=== PATIENT | male | born 1935 | race Caucasian/White ===

== ENCOUNTER 2016-07-22 16:31 | Observation (INO) | payer MEDICARE, BC ==
--- NOTE | 2016-07-22 16:50 | EDPRACDOC ---
- General Information Chief Complaint: Wound Stated Complaint: TRIPPED INJURED RT ARM TAKES A ASA BLEEDING Time Seen by Provider: 07/22/16 16:45 Mode of Arrival: Car Home Medications: Home Medications Beta-Carotene(A) W-C & E/Min [Ocuvite Tablet (1000IU/200mg/60IU)] 1 tab PO DAILY 09/01/14 Psyllium [Metamucil] 1 lamont PO DAILY 09/01/14 Ibuprofen [Motrin Ib] 200 mg PO .PRN PRN 07/22/16 Loratadine [Claritin] 10 mg PO DAILY 07/22/16 Allergies/Adverse Reactions: Allergies Allergy/AdvReac Type Severity Reaction Status Date / Time naproxen sodium [From Aleve] Allergy Intermediate Nausea only Verified 07/22/16 16:40 Sulfa (Sulfonamide Allergy Intermediate RASH Verified 07/22/16 16:40 Antibiotics) [Sulfa(Sulfonamide Antibiotics)] - 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 STRUCK RIGHT WRIST WHEN FALLING. LARGE VOLAR LACERATION 10 CM. PAIN IN RIGHT WRIST AND ELBOW. NO HEAD INJURY. NO LOC Location: Reports: Volar Dominant Side: Reports: Right Mechanism: Reports: FOOSH Pain Severity: Reports: Mild Associated Signs and Symptoms: Reports: Laceration ED Past Medical History - History Reviewed Yes Nurses notes reviewed and agree except as marked Travel Outside of [place] in the Last 3 Months?: No - Patient Medical History Musculoskeletal History: Reports: Arthritis Surgical History: Reports: Tonsillectomy/Adnoidectomy, Other (LEFT HIP REPLACEMENT, UPPER BACK SURGERY) - Family Medical History Reports: Cancer (FATHER PROSTATE CA). Denies: Hypertension, Diabetes, Stroke, Cardiac Disorders - Social Medical History Smoking Status: Never smoker ETOH: None Substance Abuse: None Lives With: Family Lives In: Home EDM Review of Systems - Review of Systems ROS Negative Except as Marked: Yes All systems reviewed and were negative except as marked Constitutional: No Symptoms Reported. negative: Fever, Chills, Weakness, Fatigue, Loss of Appetite Eyes: No Symptoms Reported. negative: Redness, Blurred Vision, Double Vision, Discharge, Pain, Light Sensitive, Photophobia Ears: No Symptoms Reported. negative: Pain, Hearing Loss, Drainage, Ear Pulling Throat: No Symptoms Reported. negative: Pain, Swelling Nose: No Symptoms Reported. negative: Congestion, Bleeding, Discharge, Injection, Swelling, Deformity, Ecchymosis, Tender, Abrasion, Laceration Mouth: No Symptoms Reported. negative: Pain, Drooling Respiratory: No Symptoms Reported. negative: Cough, Brassy Cough, Barky Cough, Shortness of Breath, Wheezing, Hemoptysis Cardiovascular: No Symptoms Reported. negative: Chest Pain, Palpitations, Syncope, Edema, Orthopnea, PND, Skin Mottling, Cyanosis Gastrointestinal: No Symptoms Reported. negative: Pain, Constipation, Nausea, Vomiting, Diarrhea, Melena, Formula Intolerance Genitourinary: No Symptoms Reported. negative: Dysuria, Hematuria, Frequency, Discharge, Bleeding, Testicular Pain, Neurological: No Symptoms Reported. negative: Headache, Dizziness, Seizure, Numbness, Weakness, Speech Difficulty, Gait Difficulty Musculoskeletal: Elbow, Wrist. negative: Arm, Ankle, Back, Chestwall, Forearm, Femur, Foot, Hand, Hip, Knee, Leg, Neck, Pelvis, Ribs, Shoulder Integumentary: No Symptoms Reported. negative: Itching, Rash, Bruising, Wound Allergic/Immunologic: No Symptoms Reported. negative: Hives, Itching Hematologic: No Symptoms Reported. negative: Lymphadenopathy, Easy Bruising, Easy Bleeding Endocrine: No Symptoms Reported. negative: Weight Gain, Weight Loss Psychiatric: No Symptoms Reported. negative: Anxiety, Depression, Hallucinations, Insomnia, Suicidal - Physical Exam Constitutional: Alert (Awake) Oriented to: Time, Person, Place Last recorded Vital Signs: Last Vital Signs Temp 97.6 F 07/22/16 16:39 Pulse 83 07/22/16 16:39 Resp 20 07/22/16 16:39 BP 170/77 07/22/16 16:39 Pulse Ox 96 07/22/16 16:39 Oxygen Pulse Oxygen Saturation 96 O2 Device Room Air Oxygen Flow Rate Fraction of Inspired Oxygen ( FIO2) - HEENT Head: Normal ( normocephalic) Eye Exam: Normal (PERRL, EOMI, Sclera white) Oropharynx: Normal (Pharynx:Moist without exudate,Gums-no swelling) Tympanic Membrane: Normal ENT EAC: Normal TMJ: Normal Nose: No Symptoms Reported (septum midline) Neck: Normal (FROM, trachea at midline) - Respiratory/Cardiovascular Respiratory: Normal - CTA (BBS clear to auscultation without adventitious sounds ) Cardiovascular: Normal (RRR without murmur, gallop or rub) - GI Auscultation: Normal (NABS) Palpation: Normal (Soft,No rebound or guarding, non distended) Tenderness: Non tender Swift's Sign: Negative - Bladder: Normal - Musculoskeletal Back: Normal (Non-Tender) Extremities: Other (OPEN 10 CM WOUND RIGHT VOLAR SURFACE, TENDERNESS ON PALPATION OF WRIST AND FOREARM.) - Integumentary Skin: Warm, Dry Lymphatics: Normal (no adenopathy) - Neurologic Memory Impaired: Normal Motor Function: Normal (Normal tone, Pulses 2+ No cyanosis or edema, FROM) Cranial Nerve: Normal (CN II-X11 intact sensation, strength 5/5) Cerebellar: Normal Mood Description: Normal Perception: Normal ED Procedures - Suture/Laceration Suture #1 Right Volar Wrist Wound Length (cm): 10 Wound's Depth, Shape: into muscle, irregular, contused tissue Wound Explored: clean Irrigated w/ Saline (ccs): 2000 Betadine Prep?: Yes Anesthesia: Lidocaine w/ Epi Volume Anesthetic (ccs): 5 Wound Debrided: minimal Wound Margins: Revised Wound Repaired With: Sutures Suture Size/Type: 4:0, nylon Number of Sutures: 9 (matress sutures) Layer Closure?: Yes Deep Layer Suture Size/Type: 4:0 Number Deep Layer Sutures: 5 Sterile Dressing Applied?: Yes Splint Applied?: Yes Type of Splint Applied: volar short arm Sling Applied?: Yes ED Wrist Problem MDM - Re-evaluation Re-evaluation 1 Re-evaluation Time: 19:27 (patient was given dilaudid 0.5 mg had an event with doug cardia and decreased loc. b/p fell to 60 systolic. given 1 liter 0.9 ns given. patient now returning to baseline) - Results Result Diagrams: 07/22/16 17:35 07/22/16 17:35 - EKG EKG #1 EKG Time: 20:04 -: Yes EKG interpreted by me Rate: bpm: 64 [place]: Normal Rhythm: NSR Block: None Hypertrophy: None ST: Normal - Departure Yes I personally saw and evaluated the patient. Disposition: Home Condition: Stable Final Diagnosis: distal radius fracture indeterminant age, complex wound repair Dr. Horta Arm laceration Qualifiers: Encounter type: initial encounter Laterality: right Qualified Code(s): S41.111A - Laceration without foreign body of right upper arm, initial encounter Chest wall contusion Qualifiers: Encounter type: initial encounter Laterality: right Qualified Code(s): S20.211A - Contusion of right front wall of thorax, initial encounter Syncope Qualifiers: Syncope type: unspecified Qualified Code(s): R55 - Syncope and collapse Education/Counseling Given To: Patient Education/Counseling Given Regarding: Diagnosis, Treatment, Prognosis Referrals: Mikal Goodman MD [Primary Care Provider] - One Week Prescriptions: No Action Beta-Carotene(A) W-C & E/Min [Ocuvite Tablet (1000IU/200mg/60IU)] 1 tab PO DAILY Psyllium [Metamucil] 1 lamont PO DAILY Loratadine [Claritin] 10 mg PO DAILY Ibuprofen [Motrin Ib] 200 mg PO .PRN PRN PRN Reason: Pain - Physician Consulted Orthopedics Time Called: 17:20 Provider Called: Clint Heard (MICK BELLE SEE) Time Housing Grant Analyst Returned Call: 17:20 Surgery Time Called: 18:13 Provider Called: Paulo Belle (declined to come in because he does "not have the help") Time Housing Grant Analyst Returned Call: 18:13 Hospitalist Time Called: 20:39 Provider Called: Jozef Saab Time Housing Grant Analyst Returned Call: 20:39
[2016-07-22] MEDS ORDERED: DIPHTHERIA AND TETANUS (ADULT) 0.5 ML SYR IM ONE (17:24)
--- NOTE | 2016-07-22 17:33 | DIRPT ---
CLINICAL DATA: 80-year-old who tripped over a rug while entering a building holding a motor in his hand, falling onto the right wrist. Laceration to the right wrist. Associated elbow pain. Patient fell onto the motor and sustained bruising on the chest. Initial encounter. EXAM: RIGHT ELBOW - COMPLETE 3+ VIEW COMPARISON: No prior elbow imaging. Right humerus x-rays 08/10/2014 are correlated. FINDINGS: No evidence of acute fracture or dislocation. Mild osseous demineralization. Minimal to mild joint space narrowing. Small calcified loose bodies within the joint. No posterior fat pad to confirm joint effusion or hemarthrosis. IMPRESSION: No acute osseous abnormality. 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 Small intra-articular loose bodies. Electronically Signed By: Vivek Cox M.D. On: 07/22/2016 17:31
--- NOTE | 2016-07-22 17:38 | DIRPT ---
CLINICAL DATA: Fall onto right wrist. The patient fell on an object at the level of the mid chest and has bruising. EXAM: CHEST 2 VIEW COMPARISON: 02/06/2012 FINDINGS: We partially visualize fixation screws in the right proximal humerus. Linear subsegmental atelectasis or scarring along the left hemidiaphragm. Thoracic spondylosis. Cardiac and mediastinal margins appear normal. No pulmonary contusion, pneumothorax, or pleural effusion identified. No obvious discontinuity along the visualized part of the sternum, although the manubrium is obscured on the lateral projection. IMPRESSION: 1. Subsegmental atelectasis or scarring along the left hemidiaphragm. 2. Thoracic spondylosis. 3. Otherwise, no significant abnormalities are observed. Electronically Signed By: Carlos Enrique Craft M.D. On: 07/22/2016 17:36
--- NOTE | 2016-07-22 17:38 | DIRPT ---
ADDENDUM REPORT: 07/22/2016 18:15 ADDENDUM: As mentioned in the body of the report, the fracture involves the radial styloid not the ulnar styloid. The impression section should read as follows : "Radial styloid fracture with degenerative changes in the carpus." Electronically Signed By: Domingo Casey M.D. On: 07/22/2016 18:15 CLINICAL DATA: Fall. Tripped over rub walking into a building. Fell onto right wrist. Laceration. EXAM: RIGHT WRIST - COMPLETE 3+ VIEW COMPARISON: None. FINDINGS: Four views study shows a fracture involving the radial styloid. Degenerative changes are seen in the ulnar carpus and to a mild degree at the first carpometacarpal joint. Bandage material overlies the lateral wrist. IMPRESSION: Ulnar styloid fracture with degenerative changes in the carpus. Electronically Signed: By: Domingo Casey M.D. On: 07/22/2016 17:35
[2016-07-22 17:51] LABS: AUTOMATED BASOPHIL 1.1 % (0-2); AUTOMATED EOSINOPHIL 3.6 % (0-5); AUTOMATED LYMPH 20.5 % (17-44); AUTOMATED MONOCYTE 8.5 % (3-10); AUTOMATED NEUTROPHIL 66.3 % (45-76); MPV 8.8 fL (7.4-10.4)
[2016-07-22 18:03] LABS: PARTIAL THROMB. TIME 24.7 SEC (22-35)
[2016-07-22] MEDS ORDERED: OXYCODONE HCL 5 MG TABLET PO ONE (18:05)
[2016-07-22] MEDS ORDERED: Lidocaine 2%-Epinephrine 1:100,000 20ml vial INF ONE (18:08)
[2016-07-22] MEDS ORDERED: HYDROmorphone 1 MG INJECTION ONE (18:32)
[2016-07-22] MEDS ORDERED: ONDANSETRON HCL 4 MG/2 ML VIAL ONE (18:47)
[2016-07-22] MEDS ORDERED: CEFAZOLIN 1 GM in D5W 100 ML IV ONE (19:21)
[2016-07-22 20:14] LABS: BLOOD UREA NITROGEN 17 MG/DL (9-20); CALCIUM 8.9 MG/DL (8.4-10.2); CALCULATED OSMOLALITY 272 MOs/Kg (270-290); CHLORIDE 104 mEq/L (98-107); GLUCOSE 168 MG/DL (70-99); SODIUM LEVEL 138 mEq/L (137-146); TOTAL PROTEIN 6.6 G/DL (6.3-8.2)
[2016-07-22 20:16] LABS: CPK TOTAL WITH POSSIBLE MB 104 IU/L (55-170)
[2016-07-22] MEDS ORDERED: TRAMADOL HCL 50 MG TAB PO PRN (21:05)
[2016-07-22] MEDS ORDERED: OXYCODONE HCL 5 MG TABLET PO PRN (21:05)
--- NOTE | 2016-07-22 21:26 | HISTPHYS ---
- Chief Complaint injury to wrist - History of Present Illness PRIMARY CARE PROVIDER: Dr. Goodman HPI: The patient is a relatively healthy and active 80 yo man who presented to the emergency department after an injury today. The patient was carrying a motor and he tripped. The motor landed on his right wrist and hand and he landed on top of the motor. He sustained a laceration to his right hand near the base of the thumb. He also hit the motor with his chest in the substernal region. Patient was evaluated in the emergency department and he had suturing of his right hand laceration by the emergency department physician. X-rays revealed possible fracture of the right wrist, and the emergency department consult to Dr. Heard, who reviewed the x-rays personally and stated he did not feel that this was a fracture. In the emergency department, the patient's right hand wrist and forearm were wrapped. The patient did have some pain, so he was given some IV pain medication. Later in the visit, the patient developed sudden complete syncope/loss of consciousness, and his blood pressure decreased dramatically to a systolic of 60. He was given IV fluids for his blood pressure. He did regain consciousness bud was feeling somewhat weak and did not remember the event. The patient is being brought in for observation for his hypotension and syncope. Onset: The injury to his hand and wrist started earlier today. Syncope was x1 in the emergency department. Duration: intermittent. Location: Injury and pain are in the right hand and right wrist and also the entire sternal area of his chest. Radiation: none. Character: Syncope was generalized loss of consciousness. Pain is moderate and sharp. Alleviated by: Nothing. Exacerbated by: Nothing. Associated Symptoms: Pain in right hand and wrist. No decrease in range of motion; no weakness or numbness on right. Chest wall pain in sternal area. No palpitations. Syncope, loss of consciousness. Weakness and fatigue. Treatments: none at home except usual medications. - Medical History Musculoskeletal History: Reports: Arthritis (and fracture R humerus) OTHER HISTORY: Allergic rhinitis Constipation Bilateral shoulder pain Macular degeneration - Surgical History Reports: Tonsillectomy/Adnoidectomy, Other (LEFT HIP REPLACEMENT, UPPER BACK SURGERY, R humerus fx, Vasectomy) - Medictions/Allergies Allergies naproxen sodium [From Aleve] Allergy (Intermediate, Verified 07/22/16 16:40) Nausea only Sulfa (Sulfonamide Antibiotics) [Sulfa(Sulfonamide Antibiotics)] Allergy ( Intermediate, Verified 07/22/16 16:40) RASH Current Medication List: Reviewed Home Medications Beta-Carotene(A) W-C & E/Min [Ocuvite Tablet (1000IU/200mg/60IU)] 1 tab PO DAILY 09/01/14 Psyllium [Metamucil] 1 lamont PO DAILY 09/01/14 Ibuprofen [Motrin Ib] 200 mg PO .PRN PRN 07/22/16 Loratadine [Claritin] 10 mg PO DAILY 07/22/16 - Family History Reports: Cancer (FATHER PROSTATE CA) - Social History Smoking Status: Never smoker Social History: Denies: Alcohol Use, Substance Use Disorder - Review of Systems GENERAL: No Fever, chills, or diaphoresis. Positive for fatigue/malaise. HEENT: No throat pain or swelling. No eye pain or eye redness. RESPIRATORY: No cough, wheezing, or shortness of breath. CARDIOVASCULAR: Chest wall pain after fall. No palpitations. GI: No abdominal pain, nausea, vomiting, diarrhea, constipation, or bloody stool. NEUROLOGICAL: No headache or focal weakness. INTEGUMENT: Except for the laceration per HPI, no rashes, itching, or lesions. LYMPHATIC SYSTEM: no lymph node swelling or pain. MUSCULOSKELETAL: Except for the right hand and wrist, and sternal chest, no new pain or joint swelling. GENITOURINARY: No dysuria or hematuria. ENDOCRINE: No polyuria or polydipsia. HEME: No chronic anemia, bleeding, or easy bruising. - Physical Exam Vital Signs: Initial Vitals Temperature 97.6 F 07/22/16 16:39 Pulse Rate 83 07/22/16 16:39 Respiratory Rate 20 07/22/16 16:39 Blood Pressure 170/77 07/22/16 16:39 Pulse Oxygen Saturation 96 07/22/16 16:39 Vital Signs - 24 hr 07/22/16 07/22/16 07/22/16 16:39 16:40 18:50 Temperature 97.6 F Pulse Rate 83 79 50 L Respiratory 20 18 16 Rate Blood Pressure 170/77 179/79 69/47 L Pulse Oxygen 96 97 90 L Saturation 07/22/16 07/22/16 07/22/16 19:00 19:15 19:46 Temperature Pulse Rate 48 L 62 62 Respiratory 18 18 20 Rate Blood Pressure 123/62 130/62 131/63 Pulse Oxygen 94 94 94 Saturation 07/22/16 07/22/16 07/22/16 20:04 20:05 20:06 Temperature Pulse Rate 62 75 81 Respiratory Rate Blood Pressure 136/66 141/66 146/63 Pulse Oxygen Saturation Weight: 100 kg Height: 6 feet 3 inches BMI: 27.6 - Other Exam Other Exam Findings: GENERAL: Mildly ill-appearing, well nourished, acute distress. HEENT: Normocephalic, atraumatic; pupils equal and round. Nares patent, without discharge or bleeding. No oropharyngeal lesions or erythema. Mucous membranes are dry. NECK: is supple, no masses, trachea midline. RESPIRATORY: Clear to auscultation bilaterally. Chest wall movements are symmetric. No use of accessory muscles to breathe. No wheezing, rales, rhonchi. Mild tenderness to palpation over sternum. CARDIOVASCULAR: Normal S1, S2. Regular. Murmur 2/6 systolic. No rubs, or gallops. PMI non-displaced. Carotids: no carotid bruits. No bradycardia or tachycardia. DP pulses 2+ bilaterally. GI: soft, nontender, non-distended, normal active bowel sounds. No hepatosplenomegaly. INTEGUMENT: Clean, dry, and intact. Unable to visualize right hand with suturing due to bandaging and splint. MUSCULOSKELETAL: Moving all extremities. No cyanosis. No clubbing. Edema: none bilaterally. Right upper extremity: able to move arm. Able to move fingers without difficulty. No numbness. Unable to test wrist due to splint and bandaging. NEUROLOGICAL: Cranial nerves 2-12 grossly intact. Motor 5/5 throughout except unable to test right upper extremity due to bandaging in splint. Reflexes: 2+ bilaterally. Babinski: toes downgoing bilaterally. Intact Finger to nose on left , unable on right. Sensory grossly intact to light touch. Intact rapid alternating movements on left, unable on right. No pronator drift on left, unable to test on right. PSYCHIATRIC: Fully oriented. Normal and appropriate affect. LYMPHATIC: No cervical lymphadenopathy. No supraclavicular lymphadenopathy. - Lab Results Laboratory Results - last 24 hr 07/22/16 07/22/16 07/22/16 17:35 17:35 17:35 WBC 7.4 RBC 5.24 Hgb 14.6 Hct 44.3 MCV 85 MCH 27.9 MCHC 33.1 RDW 17.7 H Plt Count 196 MPV 8.8 Neut % (Auto) 66.3 Lymph % (Auto) 20.5 [place] % (Auto) 8.5 Eos % (Auto) 3.6 Baso % (Auto) 1.1 Absolute Neuts (auto) 4.88 Absolute Lymphs (auto) 1.48 PT 10.4 INR 1.0 APTT 24.7 Sodium 138 Potassium 3.9 Chloride 104 Carbon Dioxide 26 Anion Gap 12 BUN 17 Creatinine 1.00 Estimated GFR (MDRD) > 60 Glucose 168 H Calculated Osmolality 272 Calcium 8.9 Total Bilirubin 0.4 AST 32 ALT 39 Alkaline Phosphatase 83 Creatine Kinase Troponin I Total Protein 6.6 Albumin 4.0 07/22/16 17:35 WBC RBC Hgb Hct MCV MCH MCHC RDW Plt Count MPV Neut % (Auto) Lymph % (Auto) [place] % (Auto) Eos % (Auto) Baso % (Auto) Absolute Neuts (auto) Absolute Lymphs (auto) PT INR APTT Sodium Potassium Chloride Carbon Dioxide Anion Gap BUN Creatinine Estimated GFR (MDRD) Glucose Calculated Osmolality Calcium Total Bilirubin AST ALT Alkaline Phosphatase Creatine Kinase 104 Troponin I < 0.01 Total Protein Albumin - Diagnostic Findings EK beats per minute. Normal sinus rhythm. Reviewed EKG personally. Chest x-ray, viewed personally: Exam(s): [id number] RAD/DG CHEST 2V CLINICAL DATA: Fall onto right wrist. The patient fell on an object at the level of the mid chest and has bruising. EXAM: CHEST 2 VIEW COMPARISON: 02/06/2012 FINDINGS: We partially visualize fixation screws in the right proximal humerus. Linear subsegmental atelectasis or scarring along the left hemidiaphragm. Thoracic spondylosis. Cardiac and mediastinal margins appear normal. No pulmonary contusion, pneumothorax, or pleural effusion identified. No obvious discontinuity along the visualized part of the sternum, although the manubrium is obscured on the lateral projection. IMPRESSION: 1. Subsegmental atelectasis or scarring along the left hemidiaphragm. 2. Thoracic spondylosis. 3. Otherwise, no significant abnormalities are observed. Right Elbow x-ray: Exam(s): [id number] RAD/DG ELBOW COMPLETE 3+V-R CLINICAL DATA: 80-year-old who tripped over a rug while entering a building holding a motor in his hand, falling onto the right wrist. Laceration to the right wrist. Associated elbow pain. Patient fell onto the motor and sustained bruising on the chest. Initial encounter. EXAM: RIGHT ELBOW - COMPLETE 3+ VIEW COMPARISON: No prior elbow imaging. Right humerus x-rays 08/10/2014 are correlated. FINDINGS: No evidence of acute fracture or dislocation. Mild osseous demineralization. Minimal to mild joint space narrowing. Small calcified loose bodies within the joint. No posterior fat pad to confirm joint effusion or hemarthrosis. IMPRESSION: No acute osseous abnormality. 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 Small intra-articular loose bodies. Right wrist x-ray: Exam(s): [id number] RAD/DG WRIST COMPLETE 3+V-R ADDENDUM REPORT: 07/22/2016 18:15 ADDENDUM: As mentioned in the body of the report, the fracture involves the radial styloid not the ulnar styloid. The impression section should read as follows : "Radial styloid fracture with degenerative changes in the carpus." Electronically Signed By: Domingo Casey M.D. On: 07/22/2016 18:15 CLINICAL DATA: Fall. Tripped over rub walking into a building. Fell onto right wrist. Laceration. EXAM: RIGHT WRIST - COMPLETE 3+ VIEW COMPARISON: None. FINDINGS: Four views study shows a fracture involving the radial styloid. Degenerative changes are seen in the ulnar carpus and to a mild degree at the first carpometacarpal joint. Bandage material overlies the lateral wrist. IMPRESSION: . Radial styloid fracture with degenerative changes in the carpus. - Assessment (1) Syncope R55 - SYNCOPE AND COLLAPSE Acute Present on Admission: Yes Qualifiers: Syncope type: unspecified Encounter type: E Qualified Code(s): R55 - Syncope and collapse Sudden syncope, complete loss of consciousness while in emergency department today. Patient does not remember the event. He had hypotension after the syncope. The syncope could have been due to pain, dehydration, or administration of pain medication. Plan: Observe patient overnight. Telemetry. Rehydrate with IV fluids. (2) Hypotension I95.9 - HYPOTENSION, UNSPECIFIED Acute Present on Admission: Yes Qualifiers: Hypotension type: H Trimester: T Patient's initial blood pressure upon arrival in the emergency department was elevated when he was in significant pain. It was 170/77. Patient then had a syncopal episode and a low blood pressure of 69/47. Plan: Patient has received an IV fluid bolus and we will continue with IV fluids overnight. Monitor blood pressure carefully. Telemetry. Patient should follow up with his primary care doctor for recheck of his blood pressure. (3) Arm laceration S41.119A - LACERATION W/O FOREIGN BODY OF UNSP UPPER ARM, INIT ENCNTR Acute Present on Admission: Yes Qualifiers: Encounter type: initial encounter Laterality: right Qualified Code(s): S41.111A - Laceration without foreign body of right upper arm, initial encounter Patient sustained a laceration to his right hand after a motor fell on his hand. The emergency department physician evaluated and treated his lab laceration with sutures. Plan: Patient is to follow up with the emergency department for suture removal and is to follow the instructions from the emergency department for wound care. (4) Radial styloid fracture S52.513A - DISP FX OF UNSP RADIAL STYLOID PROCESS, INIT FOR CLOS FX Suspected Present on Admission: Yes Qualifiers: Encounter type: initial encounter Fracture type: F Open fracture type: O Fracture alignment: F Laterality: right Fracture healing: F Patient had a motor fall on his right hand and wrist. X-ray in the emergency department was read as a radial styloid fracture with degenerative changes in the carpus. Orthopedic surgeon, Dr. Heard, was notified and reviewed the films personally. Dr. Heard felt that this was not an acute fracture. Plan: Consult Orthopedic surgery for further management. (5) Chest wall contusion S20.219A - CONTUSION OF UNSPECIFIED FRONT WALL OF THORAX, INIT ENCNTR Acute Present on Admission: Yes Qualifiers: Encounter type: initial encounter Laterality: right Qualified Code(s): S20.211A - Contusion of right front wall of thorax, initial encounter Patient has some sternal chest pain after falling on to a motor today. Plan: P.r.n. pain medication. IV morphine p.r.n.. Case Care Discussed with: Patient, Nursing Staff
[2016-07-22] MEDS ORDERED: Vaccine Screening Complete SCH (23:00)
[2016-07-22] MEDS ORDERED: Aluminum;Magnesium;Simethicone 30 ML UDC PO PRN (23:01)
[2016-07-22] MEDS ORDERED: TEMAZEPAM 15 MG CAP PO PRN (23:01)
[2016-07-22] MEDS ORDERED: ACETAMINOPHEN 325 MG SUPP PR PRN (23:01)
[2016-07-22] MEDS ORDERED: ONDANSETRON HCL 4 MG/2 ML VIAL IV PRN (23:01)
[2016-07-22] MEDS ORDERED: PROMETHAZINE 25 MG/ML VIAL IV PRN (23:01)
[2016-07-22] MEDS ORDERED: BISACODYL 5 MG TAB PO PRN (23:01)
[2016-07-22] MEDS ORDERED: BENZONATATE 100 MG PERLES PO PRN (23:01)
[2016-07-22] MEDS ORDERED: ACETAMINOPHEN 325 MG/TAB TABLET PO PRN (23:01)
[2016-07-22] MEDS ORDERED: GUAIFEN 100 MG-DEXTROMETH 10 MG PER 5 ML PO PRN (23:01)
[2016-07-22] MEDS ORDERED: SENNA CONCENTRATE TAB PO PRN (23:01)
[2016-07-22] MEDS: NS 1,000 ML IV SCH (23:34)
[2016-07-23] MEDS ORDERED: CEFAZOLIN 1 GM in D5W 100 ML IV SCH (02:00)
[2016-07-23] MEDS: Cefazolin 1gm/50 ml D5W 1 GM/50 ML RTU IV SCH ×2 (02:49→08:11)
[2016-07-23 03:39] VITALS: BMI 27.1
[2016-07-23 05:07] LABS: BLOOD UREA NITROGEN 15 MG/DL (9-20); CALCIUM 8.2 MG/DL (8.4-10.2); CALCULATED OSMOLALITY 267 MOs/Kg (270-290); CHLORIDE 106 mEq/L (98-107); GLUCOSE 99 MG/DL (70-99); SODIUM LEVEL 138 mEq/L (137-146)
[2016-07-23] MEDS: NS 1,000 ML IV SCH (08:12)
[2016-07-23 08:31] VITALS: TEMP 98.9
[2016-07-23] MEDS ORDERED: Loratadine 10 MG TAB PO SCH (09:00)
[2016-07-23] MEDS ORDERED: [UNRECOGNIZED DRUG - OTHER] PO SCH (09:00)
--- NOTE | 2016-07-23 09:32 | DIRPT ---
CLINICAL DATA: Status post trip and fall 07/22/2016 with a radial styloid fracture and wrist laceration. Initial encounter. EXAM: CT OF THE UPPER RIGHT EXTREMITY WITHOUT CONTRAST TECHNIQUE: Multidetector CT imaging of the right wrist was performed according to the standard protocol. COMPARISON: Plain films right wrist 07/22/2016 FINDINGS: As seen on the comparison plain films, the patient has a fracture of the radial styloid. The fracture fragment is triangular in shape and measures 0.8 cm transverse at the articular surface by up to 1.3 cm craniocaudal. The proximal most portion of the fracture demonstrates distraction of 0.3 cm. At the articular surface, the fracture is nondisplaced. No other fracture is identified. Gas is seen in the dorsal soft tissues consistent with history of laceration. There is a small amount of hematoma about the lesser. Some of the extensor tendons are not well demonstrated, including extensor compartment 2 tendons at the level of Deepa's tubercle and the extensor are digitorum tendons at the level of the mid carpus. This may be related to technical factors rather than tendon tear is the patient's laceration appears superficial and more distal. Degenerative change is seen about the carpus. The scapholunate interval somewhat suggestive of scapholunate ligament tear. 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 It has benign features. Soft tissues are otherwise unremarkable. IMPRESSION: Minimally distracted fracture of the distal radial styloid as described above. Laceration over the dorsum of the wrist with a small amount of associated hematoma. The extensor digitorum tendons and the compartment 2 extensor tendons are not well seen and is likely artifactual. If there is concern for tendon injury, MRI could be used for further evaluation. Widened scapholunate interval most compatible with scapholunate ligament tear. Degenerative change about the carpus. Electronically Signed By: Vivek Purcell M.D. On: 07/23/2016 09:30
--- NOTE | 2016-07-23 10:42 | PCM.ORTHCO ---
Consultation Date: 07/23/16 Reason for Consult: Fracture (Radius) - History of Present Illness Mr. Eden is an 80 year old male who presented to the ED yesterday after a fall. He was carrying a motor, fell and the motor landed on his wrist/hand. He landed onto the motor. He had a laceration from the motor to his radial side of his wrist as well. This was repaired in the ED. He was placed into a volar splint in the ED. CT of the wrist confirmed radial styloid fracture. Patient has pain and swelling in the wrist, but denies numbness distally in the digits. Patient was admitted for observation due to syncope and hypotension that developed during his ED visit. He denies SOB, chest pain, or N/V at this time. Chief Complaint: injury to wrist - Past Medical and Surgical History Musculoskeletal History: Reports: Arthritis (and fracture R humerus) Psychological History: Denies: Alcoholism, Substance Use Disorder Past Surgical History: Reports: Tonsillectomy/Adnoidectomy, Other (LEFT HIP REPLACEMENT, UPPER BACK SURGERY, R humerus fx, Vasectomy) Allergies naproxen sodium [From Aleve] Allergy (Intermediate, Verified 07/22/16 16:40) Nausea only Sulfa (Sulfonamide Antibiotics) [Sulfa(Sulfonamide Antibiotics)] Allergy ( Intermediate, Verified 07/22/16 16:40) RASH Home Medications Beta-Carotene(A) W-C & E/Min [Ocuvite Tablet (1000IU/200mg/60IU)] 1 tab PO DAILY 09/01/14 Psyllium [Metamucil] 1 lamont PO DAILY 09/01/14 Aspirin (Enteric Coated) [Ecotrin] 81 mg PO DAILY PRN 07/22/16 Ibuprofen [Motrin Ib] 200 mg PO .PRN PRN 07/22/16 Loratadine [Claritin] 10 mg PO DAILY 07/22/16 - Social History Smoking Status: Never smoker Social History: Denies: Alcohol Use, Substance Use Disorder - Family History Reports: Cancer (FATHER PROSTATE CA) - Review of Systems Constitutional: negative: Chills, Fever Respiratory: negative: Shortness of Breath Cardiovascular: negative: Chest Pain Gastrointestinal: negative: Nausea, Vomiting Neurological: negative: Numbness, Tingling Musculoskeletal:: Joint Pain (right wrist with any movement), Swelling (right wrist/hand) - Physical Exam Vital Signs: Initial Vitals Temperature 97.6 F 07/22/16 16:39 Pulse Rate 83 07/22/16 16:39 Respiratory Rate 20 07/22/16 16:39 Blood Pressure 170/77 07/22/16 16:39 Pulse Oxygen Saturation 96 07/22/16 16:39 Last Vital Signs Temp 98.9 F 07/23/16 08:00 Pulse 73 07/23/16 08:00 Resp 19 07/23/16 08:00 BP 119/48 L 07/23/16 08:00 Pulse Ox 96 07/23/16 08:00 Constitutional: No apparent distress, Alert, Well appearing Oriented to: Time, Person, Place - HEENT Head: Normal - Musculoskeletal Extremities: Radial Pulse, Other (Dressing/splint removed. He does have a laceration to his right wrist/base of thumb with multiple sutures in place. No purulent drainage. Patient has active extension in the thumb and wrist although limited secondary to pain. Able to ulnar and radially deviate, limited by pain. Able to move fingers freely. SITLT.) - Diagnostic Findings Exam(s): [id number] CT/CT EXTREM UP W/O CM-R CLINICAL DATA: Status post trip and fall 07/22/2016 with a radial styloid fracture and wrist laceration. Initial encounter. EXAM: CT OF THE UPPER RIGHT EXTREMITY WITHOUT CONTRAST TECHNIQUE: Multidetector CT imaging of the right wrist was performed according to the standard protocol. COMPARISON: Plain films right wrist 07/22/2016 FINDINGS: As seen on the comparison plain films, the patient has a fracture of the radial styloid. The fracture fragment is triangular in shape and measures 0.8 cm transverse at the articular surface by up to 1.3 cm craniocaudal. The proximal most portion of the fracture demonstrates distraction of 0.3 cm. At the articular surface, the fracture is nondisplaced. No other fracture is identified. Gas is seen in the dorsal soft tissues consistent with history of laceration. There is a small amount of hematoma about the lesser. Some of the extensor tendons are not well demonstrated, including extensor compartment 2 tendons at the level of Deepa's tubercle and the extensor are digitorum tendons at the level of the mid carpus. This may be related to technical factors rather than tendon tear is the patient's laceration appears superficial and more distal. Degenerative change is seen about the carpus. The scapholunate interval somewhat suggestive of scapholunate ligament tear. 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 It has benign features. Soft tissues are otherwise unremarkable. IMPRESSION: Minimally distracted fracture of the distal radial styloid as described above. Laceration over the dorsum of the wrist with a small amount of associated hematoma - Assessment/Plan (1) Radial styloid fracture S52.513A - DISP FX OF UNSP RADIAL STYLOID PROCESS, INIT FOR CLOS FX Suspected initial encounter closed O F right F Case Care Discussed with: Patient, Family Plan: Non-operative treatment has been recommended. New dressing applied. Patient placed into a thumb spica brace. To remain NWB. To follow-up as an outpatient in 2 weeks for suture removal and plan for transition into exoform fracture brace. To follow-up earlier prn. Recommend ice and elevate RUE. Continue pain management.
[2016-07-23] MEDS ORDERED: PSYLLIUM 1 PACK PO SCH (11:00)
[2016-07-23] MEDS ORDERED: VITAMINS, MULTIPLE CAP PO SCH (12:00)
[2016-07-23 12:31] VITALS: BP 163/68
--- NOTE | 2016-07-23 13:22 | PCM.DCS92 ---
- Final/Secondary Discharge Diagnosis (1) Syncope Acute R55 - SYNCOPE AND COLLAPSE Present on Admission: Yes unspecified E R55 - Syncope and collapse Comment: Sudden syncope, complete loss of consciousness while in emergency department today. Patient does not remember the event. He had hypotension after the syncope. The syncope could have been due to pain, dehydration, or administration of pain medication. Plan: Observe patient overnight. Telemetry. Rehydrate with IV fluids. (2) Hypotension Acute I95.9 - HYPOTENSION, UNSPECIFIED Present on Admission: Yes H T Comment: Patient's initial blood pressure upon arrival in the emergency department was elevated when he was in significant pain. It was 170/77. Patient then had a syncopal episode and a low blood pressure of 69/47. Plan: Patient has received an IV fluid bolus and we will continue with IV fluids overnight. Monitor blood pressure carefully. Telemetry. Patient should follow up with his primary care doctor for recheck of his blood pressure. (3) Arm laceration Acute S41.119A - LACERATION W/O FOREIGN BODY OF UNSP UPPER ARM, INIT ENCNTR Present on Admission: Yes initial encounter right S41.111A - Laceration without foreign body of right upper arm, initial encounter Comment: Patient sustained a laceration to his right hand after a motor fell on his hand. The emergency department physician evaluated and treated his lab laceration with sutures. Plan: Patient is to follow up with the emergency department for suture removal and is to follow the instructions from the emergency department for wound care. (4) Radial styloid fracture Suspected S52.513A - DISP FX OF UNSP RADIAL STYLOID PROCESS, INIT FOR CLOS FX Present on Admission: Yes initial encounter closed O F right F Comment: Patient had a motor fall on his right hand and wrist. X-ray in the emergency department was read as a radial styloid fracture with degenerative changes in the carpus. Orthopedic surgeon, Dr. Heard, was notified and reviewed the films personally. Dr. Heard felt that this was not an acute fracture. Plan: Consult Orthopedic surgery for further management. (5) Chest wall contusion Acute S20.219A - CONTUSION OF UNSPECIFIED FRONT WALL OF THORAX, INIT ENCNTR Present on Admission: Yes initial encounter right S20.211A - Contusion of right front wall of thorax , initial encounter Comment: Patient has some sternal chest pain after falling on to a motor today. Plan: P.r.n. pain medication. IV morphine p.r.n.. Discharge Disposition: Home Discharge Condition: Improved Cognitive Discharge Status: Unimpaired Fuctional Discharge Status: Independent, Deconditioning, Ambulatory Dysfunction Physician Follow up/Referrals: Mikal Goodman MD [Primary Care Provider] - One Week Clint Heard MD [Staff Physician] - Call for Appointment Home Medications / New Prescriptions: No Action Beta-Carotene(A) W-C & E/Min [Ocuvite Tablet (1000IU/200mg/60IU)] 1 tab PO DAILY Psyllium [Metamucil] 1 lamont PO DAILY Loratadine [Claritin] 10 mg PO DAILY Ibuprofen [Motrin Ib] 200 mg PO .PRN PRN PRN Reason: Pain Aspirin (Enteric Coated) [Ecotrin] 81 mg PO DAILY PRN PRN Reason: Pain O2 Device: Room Air Diet at Discharge: As Tolerated, Heart Healthy Activity: No Restrictions Call Office For: Worsening Symptoms, Fever over 100.5, Pain Uncontrolled By Meds - DC Summary Notes Hospital Course Note:: Discharge summary on patient named ASHOK JOHNSON SR admitted to [facility] on 07/22/16 by Jozef Saab MD. Date of discharge is []. Very pleasant gentleman who fractured his wrist and had a laceration associated with caring a motor. In the emergency department he had a syncopal episode. It appeared to be vasovagal. He was observed overnight. He was seen in consultation by surgery who felt a splint was in order. He will follow up with surgery as recommended by them. At this point patient has had no further syncopal episodes his event appears to be completely vasovagal and he will discharge home. He is to follow up with his primary care physician in [address] Clint Heard as scheduled. Total Time: 45 min Code: 11209 (>30min.) - Physical Exam Vital Signs: Last Vital Signs Temp 98.9 F 07/23/16 12:00 Pulse 74 07/23/16 12:00 Resp 18 07/23/16 12:00 BP 163/68 07/23/16 12:00 Pulse Ox 93 07/23/16 12:00 Oxygen Pulse Oxygen Saturation 93 O2 Device Room Air Oxygen Flow Rate 2 Fraction of Inspired Oxygen ( FIO2) Constitutional: No apparent distress, Alert, Well appearing Oriented to: Time, Person, Place - HEENT Head: Normal Eye: Normal (pupils equal, reactive to light, and round; EOMI, Sclera white) Oropharynx: Normal (Pharynx: Moist without exudate,Gums-no swelling, No oropharyngeal lesions or erythema, Mucous membranes are dry.) Nose: No Symptoms Reported (Nares patent, without discharge or bleeding.) - Respiratory/Cardiovascular Respiratory: Normal - CTA (BBS clear to auscultation without adventitious sounds ) Cardiovascular: Normal (RRR without murmur, gallop or rub) - GI Auscultation: Normal (NABS) Palpation: Normal (Soft,No rebound or guarding, non distended) Tenderness: Non tender Swift's Sign: Negative - Exam Deferred: Yes - Musculoskeletal Back: Normal (Non-Tender) Extremities: Normal, Radial Pulse, Other (Dressing/splint removed. He does have a laceration to his right wrist/base of thumb with multiple sutures in place. No purulent drainage. Patient has active extension in the thumb and wrist although limited secondary to pain. Able to move fingers freely. SITLT.) - Integumentary Skin: Warm, Dry Lymphatics: Normal (no adenopathy) - Neurologic Memory Impaired: Normal Motor Function: Normal (Motor 5/5 throughout.Normal tone, Pulses 2+ No cyanosis or edema, FROM) Cranial Nerve: Normal (CN II-XII intact sensation, strength 5/5) Cerebellar: Normal Mood Description: Normal Perception: Normal - Other Exam Other Exam Findings: Laboratory Results - last 24 hr 07/22/16 07/22/16 07/22/16 17:35 17:35 17:35 WBC 7.4 RBC 5.24 Hgb 14.6 Hct 44.3 MCV 85 MCH 27.9 MCHC 33.1 RDW 17.7 H Plt Count 196 MPV 8.8 Neut % (Auto) 66.3 Lymph % (Auto) 20.5 [place] % (Auto) 8.5 Eos % (Auto) 3.6 Baso % (Auto) 1.1 Absolute Neuts (auto) 4.88 Absolute Lymphs (auto) 1.48 PT 10.4 INR 1.0 APTT 24.7 Sodium 138 Potassium 3.9 Chloride 104 Carbon Dioxide 26 Anion Gap 12 BUN 17 Creatinine 1.00 Estimated GFR (MDRD) > 60 Glucose 168 H Calculated Osmolality 272 Calcium 8.9 Total Bilirubin 0.4 AST 32 ALT 39 Alkaline Phosphatase 83 Creatine Kinase Troponin I Total Protein 6.6 Albumin 4.0 07/22/16 07/23/16 07/23/16 17:35 04:00 04:00 WBC 12.1 H RBC 4.70 Hgb 13.1 L D Hct 39.9 L MCV 85 MCH 27.9 MCHC 32.9 L RDW 17.4 H Plt Count 172 MPV 9.0 Neut % (Auto) Lymph % (Auto) [place] % (Auto) Eos % (Auto) Baso % (Auto) Absolute Neuts (auto) Absolute Lymphs (auto) PT INR APTT Sodium 138 Potassium 4.2 Chloride 106 Carbon Dioxide 25 Anion Gap 11 BUN 15 Creatinine 0.90 Estimated GFR (MDRD) > 60 Glucose 99 Calculated Osmolality 267 L Calcium 8.2 L Total Bilirubin AST ALT Alkaline Phosphatase Creatine Kinase 104 Troponin I < 0.01 Total Protein Albumin
[2016-07-23 13:49] VITALS: PULSE 75
== END 2016-07-23 16:02 | disposition home or self-care (01) ==
LOC: ED 16:31 → PCU 21:04
PROVIDERS: ADMIT Internal Medicine; ATTEND Hospitalist
DX: R55 Syncope and collapse (principal); I95.9 Hypotension, unspecified; S61.511A Laceration without foreign body of right wrist, initial encounter; S20.211A Contusion of right front wall of thorax, initial encounter; W01.0XXA Fall on same level from slipping, tripping and stumbling without subsequent striking against object, initial encounter; Z96.642 Presence of left artificial hip joint
CPT/HCPCS: 13121; 13122; 36415; 71020; 73080; 73110; 73200; 80048; 80053; 82550; 84484; 85025; 85027; 85610; 85730; 93005; 96365; 96375; 99284; A9270; G0378; J0690; J1170; J2405; J3490; J7060; 13102; 90714